=== PATIENT | male | born 1945 | race Caucasian/White ===

== ENCOUNTER → 2020-05-11 | Outpatient (CLI) | payer MEDICARE, OTHER ==
[~2020-05-11] MED LIST: REGADENOSON 0.4 MG/5 ML SYRINGE ONE
== END | disposition home or self-care (01) ==
LOC: CFH 08:04
PROVIDERS: ATTEND Internal Medicine Cardiovascular Disease
DX: I44.7 Left bundle-branch block, unspecified (principal); I48.0 Paroxysmal atrial fibrillation
CPT/HCPCS: 78452; 93017; A9502; J2785